=== PATIENT | female | born 2000 | race Caucasian/White ===

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

== ENCOUNTER 2020-02-09 22:35 | Emergency (ER) | payer OTHER ==
[2020-02-09 22:55] VITALS: BP 115/69
--- NOTE | 2020-02-09 23:16 | ER Document Report ---
HPI - HPI Patient complains to provider of: left knee pain Time Seen by Provider: 02/09/20 23:04 Pain Level: 3 Context: 19-year-old female past medical history significant for anxiety and asthma presents the emergency room with left knee pain. Patient states she fell on her porch got her leg caught between the stairs twisting her left knee. States is able to walk but is painful. History of previous meniscal tears. States she did take 1200 mg of ibuprofen just prior to arrival which is helping with the pain. No other trauma or injury. Denies . Exacerbated by: Walking Relieved by: Remaining still Similar symptoms previously: Yes - History of previous meniscal tears Recently seen / treated by doctor: No - ROS Systems Reviewed and Negative: Yes All other systems reviewed and negative - EENT EENT: DENIES: Sore Throat - NEURO Neurology: DENIES: Weakness - RESPIRATORY Respiratory: DENIES: Trouble Breathing - MUSCULOSKELETAL Musculoskeletal: REPORTS: Extremity pain. DENIES: Back Pain - DERM Skin Color: Normal, [place] Skin Problems: None Past Medical History - General Information source: Patient - Social History Smoking Status: Current Every Day Smoker Frequency of alcohol use: None Drug Abuse: None Family History: Reviewed & Not Pertinent Patient has homicidal ideation: No Renal/ Medical History: Denies: Hx Peritoneal Dialysis Vertical Provider Document - CONSTITUTIONAL Agree With Documented VS: Yes Exam Limitations: No Limitations General Appearance: Mild Distress - INFECTION CONTROL TRAVEL OUTSIDE OF THE [place] IN LAST 30 DAYS: No - HEENT HEENT: Atraumatic, Normocephalic - NECK Neck: Normal Inspection, Supple - RESPIRATORY Respiratory: Breath Sounds Normal, No Respiratory Distress, Chest Non-Tender. negative: Rales, Rhonchi, Wheezing - CARDIOVASCULAR Cardiovascular: Regular Rate, Regular Rhythm, No Murmur - MUSCULOSKELETAL/EXTREMETIES Musculoskeletal/Extremeties: FROM, Tender - Palpation to the left medial patella. Full range of motion with flexion, extension, internal and external rotation of the knee. Negative anterior posterior drawer, negative Cj's, negative Manuela's. No obvious deformity noted. No swelling. - NEURO Level of Consciousness: Awake, Alert Motor/Sensory: No Motor Deficit, No Sensory Deficit Notes: Positive left pedal pulse. Capillary refill less than 3 seconds. - DERM Integumentary: Warm, Dry Course - Re-evaluation Re-evalutation: 02/09/20 23:18 Patient was offered x-rays of the left knee. Patient refused patient is concerned about a meniscal tear. Requesting MRI. Counseled patient that we do not do MRIs in the emergency room unless there is a emergent need, which would be the diagnostic study of choice to rule out a meniscal tear. Counseled patient that she can rest, ice, elevate her knee has a brace at home she can wear for comfort. Crutches with crutch training provided by nursing staff as documented. Will refer to outpatient orthopedics if not improving in 2 to 3 days. On-call physician was provided. Continue with ibuprofen but do not exceed more than 800 mg every 6 hours. Can take Tylenol in between the Motrin. Patient was given strict return to the emergency room guidelines. Return for any new or worsening symptoms. All questions were answered. Patient verbalized understanding and agrees with plan of care. 02/09/20 23:49 - Vital Signs Vital signs: Temp Pulse Resp BP Pulse Ox 97.8 F 90 16 115/69 97 02/09/20 23:02 02/09/20 22:52 02/09/20 22:52 02/09/20 22:52 02/09/20 22:52 - Diagnostic Test Radiology reviewed: Reports reviewed Procedures - Immobilization Left Knee Time completed: 23:50 Pre-Proc Neuro Vasc Exam: Normal Immobilizer type: Crutches Performed by: PCT Post-Proc Neuro Vasc Exam: Normal Alignment checked and good: Yes Discharge - Discharge Clinical Impression: Left knee injury Qualifiers: Encounter type: initial encounter Qualified Code(s): S89.92XA - Unspecified injury of left lower leg, initial encounter Condition: Stable Disposition: HOME, SELF-CARE Instructions: Use of Crutches ([facility]), Ice & Elevation ([facility]), Sprained Knee ([facility]) Additional Instructions: Rest, ice, elevate left knee. Continue with Motrin not to exceed 800 mg every 6 hours. Can take Tylenol in between. Outpatient follow-up with orthopedics as discussed. Return for any new or worsening symptoms. Referrals: RIA WELSH JR, DO [ACTIVE PROVISIONAL STAFF] - Follow up as needed
== END 2020-02-09 23:50 | disposition home or self-care (01) ==
LOC: ER 22:35
DX: S89.92XA Unspecified injury of left lower leg, initial encounter (principal); M25.562 Pain in left knee; M79.605 Pain in left leg; W19.XXXA Unspecified fall, initial encounter; Y92.008 Other place in unspecified non-institutional (private) residence as the place of occurrence of the external cause; F41.9 Anxiety disorder, unspecified; J45.909 Unspecified asthma, uncomplicated; F17.200 Nicotine dependence, unspecified, uncomplicated
CPT/HCPCS: 99283

== ENCOUNTER 2020-04-28 22:26 | Emergency (ER) | payer MEDICAID ==
[2020-04-28 22:41] VITALS: BP 147/80
== END 2020-04-29 00:18 | disposition left against medical advice (07) ==
LOC: ER 22:26
DX: Z53.21 Procedure and treatment not carried out due to patient leaving prior to being seen by health care provider (principal); R68.84 Jaw pain

== ENCOUNTER 2020-05-02 15:02 | Emergency (ER) | payer SELFPAY ==
[2020-05-02 15:17] VITALS: BP 130/67
--- NOTE | 2020-05-02 15:52 | ER Document Report ---
ED General - General Chief Complaint: Nausea/Vomiting Stated Complaint: NAUSEA,VOMITING,RIGHT EAR PAIN Notes: 19-year-old female with past medical history of hiatal hernia, anxiety presenting today with nausea and vomiting and diarrhea since yesterday. She states that yesterday she ate a sandwich that had mold on the bread. She denies any fevers, chills, shortness of breath, chest pain or abdominal pain. She has had 7 episodes of vomiting yesterday and approximately 6 today. Her last episode of vomiting was 1 hour ago. She took Zofran approximately 1 hour ago. Continues to state that she is nauseated. Works at a [employer]. Is able to keep fluids down. Is unable to keep solids down at this time. She tried to eat [employer] yesterday while at work but she was unable to keep it down. Also has had right ear pain starting this am after cleaning her ear. She also noted that she had some blood from her ear. No additional symptoms reported. TRAVEL OUTSIDE OF THE [place] IN LAST 30 DAYS: No - Related Data Allergies/Adverse Reactions: amoxicillin Allergy (Verified 05/02/20 15:38) Penicillins Allergy (Verified 05/02/20 15:38) prednisone Allergy (Verified 05/02/20 15:38) Past Medical History - Social History Smoking Status: Never Smoker Family History: Reviewed & Not Pertinent Renal/ Medical History: Denies: Hx Peritoneal Dialysis Review of Systems - Review of Systems Constitutional: See HPI EENT: See HPI Cardiovascular: No symptoms reported Respiratory: No symptoms reported Gastrointestinal: See HPI Genitourinary: No symptoms reported Female Genitourinary: No symptoms reported Musculoskeletal: No symptoms reported Skin: No symptoms reported Hematologic/Lymphatic: No symptoms reported Neurological/Psychological: No symptoms reported Physical Exam - Vital signs Vitals: Temp Pulse Resp BP Pulse Ox 99.2 F 100 16 130/67 H 97 05/02/20 15:14 05/02/20 15:14 05/02/20 15:14 05/02/20 15:14 05/02/20 15:14 Interpretation: Normal - Notes Notes: Adult General: GENERAL: Alert, interacts well. No acute distress HEAD: Normocephalic, atraumatic EYES: Pupils equal, round and reactive to light. Extraocular movements intact. ENT: Oral mucosa moist, tongue midline. Oropharynx unremarkable. Airway patent. Nares patent, sinuses nontender, right ear canal has cerum with small dried blood in ear canal. TMs intact. No Trismus. NECK: Full range of motion. Supple. Trachea midline. No lymphadenopathy. LUNGS: Clear to auscultation bilaterally, no wheezes, rales, or rhonchi. No re spiratory distress. Nontender chest wall. HEART: Regular rate and rhythm. No murmurs, rubs or gallops. ABDOMEN: Soft, nontender. Nondistended. (-) [place] sign. Bowel sounds present in all 4 quadrants. No rebound, guarding or masses. GENITOURINARY: Deferred EXTREMITIES: Moves all 4 extremities spontaneously. No edema, normal radial and dorsal pedis pulses bilaterally. No cyanosis. BACK: No saddle anesthesia, normal distal neurovascular exam. Moves all extremities with full range of motion. NEUROLOGICAL: Alert and oriented x3. Normal speech. Cranial nerves II through XII grossly intact. Strength 5/ 5 in all extremities. PSYCH: Normal affect, normal mood. SKIN: Warm, dry, normal turgor. No rashes or lesions noted. Course - Re-evaluation Re-evalutation: 05/02/20 16:59 I was notified by the nurse that the patient refuses any IM medication and does not desire any antinausea medication as the nausea is intermittent 05/02/20 17:34 Her TM is intact and a small amount of dried blood noted in ear canal as well as cerum. Patient bleeding likely due to disrupting the canal while using a q tip to clean her ears. Patient advised to not use q tips to clean her ears as this can cause trauma to the ears. States that she is occasionally nauseated but she is currently not nauseated. Her CBC and CMP have come back unremarkable. I am still pending a urinalysis at this time. She is still able to drink fluids. She continues to ask when she can leave. Continues to deny wanting any antinausea medication and she can continue to take her zofran at home. Her urinalysis did come back with trace leukocyte esterase , but she denies any urinary symptoms. As patients labs are unremarkable and patient denies wanting additional medication to treat her symptoms, I will discharge the patient. I discussed with her that she should establish care with a primary care provider as soon as possible. I also discussed with her that she can return to the emergency department if she has worsening symptoms or the development of new symptoms. Patient acknowledges and verbalizes understanding of instruction and plan. All questions answered. - Vital Signs Vital signs: Temp Pulse Resp BP Pulse Ox 99.2 F 100 16 130/67 H 97 05/02/20 15:14 05/02/20 15:14 05/02/20 15:14 05/02/20 15:14 05/02/20 15:14 - Laboratory Result Diagrams: 05/02/20 15:50 05/02/20 15:50 Laboratory results interpreted by me: 05/02/20 16:48 Ur Leukocyte Esterase TRACE H Discharge - Discharge Clinical Impression: Gastroenteritis Condition: Stable Disposition: HOME, SELF-CARE Instructions: Antinausea Medication ([facility]), Gastroenteritis (adult) ([facility]) Additional Instructions: You can continue to take Zofran for your nausea. Please establish care with a primary care provider. You may return to the emergency department for worsening symptoms or development of new symptoms. Forms: Return to Work
[2020-05-02] MEDS ORDERED: PROMETHAZINE HCL INJ 25 MG/1 ML VIAL IM ONE (16:30)
[2020-05-02] MEDS ORDERED: DIPHENHYDRAMINE HCL 25 MG CAPSULE PO ONE (16:31)
[2020-05-02 16:44] LABS: ABSOLUTE EOSINOPHILS # (AUTO) 0.1 10^3/uL (0.0-0.6); ABSOLUTE LYMPHOCYTES (AUTO) 1.8 10^3/uL (0.5-4.7); ABSOLUTE MONOCYTES (AUTO) 0.6 10^3/uL (0.1-1.4); ABSOLUTE NEUT (AUTO) 3.6 10^3/uL (1.7-8.2); BASOPHILS % (AUTO) 0.2 % (0-2); EOSINOPHILS % (AUTO) 0.9 % (0-6); HEMATOCRIT 39.4 % (36.0-47.0); HEMOGLOBIN 13.8 g/dL (12.0-15.5); LYMPHOCYTES % (AUTO) 29.4 % (13-45); MEAN CORPUSCULAR HEMOGLOBIN 32.9 pg (27.0-33.4); MEAN CORPUSCULAR HGB CONC 35.1 g/dL (32.0-36.0); MEAN CORPUSCULAR VOLUME 94 fl (80-97); MONOCYTES % (AUTO) 9.9 % (3-13); PLATELET COUNT 246 10^3/uL (150-450); RED CELL DISTRIBUTION WIDTH 12.5 % (11.5-14.0); SEGMENTED NEUTROPHILS % (AUTO) 59.6 % (42-78); TOTAL CELLS COUNTED % (AUTO) 100 %; WHITE BLOOD COUNT 6.1 10^3/uL (4.0-10.5)
[2020-05-02 17:10] LABS: ALKALINE PHOSPHATASE 47 U/L (38-126); ANION GAP 7 (5-19); ASPARTATE AMINO TRANSFERASE 22 U/L (14-36); BILIRUBIN,DIRECT 0.2 mg/dL (0.0-0.4); BILIRUBIN,TOTAL 0.2 mg/dL (0.2-1.3); BLOOD UREA NITROGEN 13 mg/dL (7-20); CALCIUM 9.2 mg/dL (8.4-10.2); CARBON DIOXIDE 29 mmol/L (22-30); CHLORIDE 105 mmol/L (98-107); GLUCOSE 89 mg/dL (75-110); POTASSIUM 4.1 mmol/L (3.6-5.0); TOTAL PROTEIN 6.9 g/dL (6.3-8.2)
[2020-05-02 17:36] LABS: AMORPHOUS SEDIMENT,URINE TRACE /HPF; APPEARANCE,URINE SLIGHTLY-CLOUDY; BILIRUBIN,URINE NEGATIVE (NEGATIVE); COLOR,URINE YELLOW; GLUCOSE, URINE NEGATIVE (NEGATIVE); KETONES,URINE NEGATIVE (NEGATIVE); LEUKOCYTE ESTERASE,URINE TRACE (NEGATIVE); NITRITE,URINE NEGATIVE (NEGATIVE); PROTEIN,URINE NEGATIVE (NEGATIVE); URINE SPECIFIC GRAVITY 1.017; UROBILINOGEN,URINE NEGATIVE mg/dL (<2.0)
== END 2020-05-02 17:53 | disposition home or self-care (01) ==
LOC: ER 15:02
DX: K52.9 Noninfective gastroenteritis and colitis, unspecified (principal); R11.2 Nausea with vomiting, unspecified; H61.21 Impacted cerumen, right ear; H92.21 Otorrhagia, right ear; Z88.0 Allergy status to penicillin; Z88.8 Allergy status to other drugs, medicaments and biological substances
CPT/HCPCS: 36415; 80053; 81001; 81025; 85025; 99283

== ENCOUNTER 2020-05-09 17:16 | Emergency (ER) | payer SELFPAY ==
[2020-05-09 17:50] LABS: ABSOLUTE EOSINOPHILS # (AUTO) 0.1 10^3/uL (0.0-0.6); ABSOLUTE LYMPHOCYTES (AUTO) 1.7 10^3/uL (0.5-4.7); ABSOLUTE MONOCYTES (AUTO) 0.6 10^3/uL (0.1-1.4); ABSOLUTE NEUT (AUTO) 4.7 10^3/uL (1.7-8.2); BASOPHILS % (AUTO) 0.2 % (0-2); EOSINOPHILS % (AUTO) 0.9 % (0-6); HEMATOCRIT 41.4 % (36.0-47.0); HEMOGLOBIN 14.4 g/dL (12.0-15.5); LYMPHOCYTES % (AUTO) 23.7 % (13-45); MEAN CORPUSCULAR HEMOGLOBIN 32.8 pg (27.0-33.4); MEAN CORPUSCULAR HGB CONC 34.9 g/dL (32.0-36.0); MEAN CORPUSCULAR VOLUME 94 fl (80-97); MONOCYTES % (AUTO) 8.9 % (3-13); PLATELET COUNT 264 10^3/uL (150-450); RED CELL DISTRIBUTION WIDTH 12.2 % (11.5-14.0); SEGMENTED NEUTROPHILS % (AUTO) 66.3 % (42-78); TOTAL CELLS COUNTED % (AUTO) 100 %; WHITE BLOOD COUNT 7.1 10^3/uL (4.0-10.5)
[2020-05-09 18:11] LABS: ALBUMIN 4.1 g/dL (3.5-5.0); ALKALINE PHOSPHATASE 52 U/L (38-126); ANION GAP 5 (5-19); ASPARTATE AMINO TRANSFERASE 20 U/L (14-36); BILIRUBIN,DIRECT 0.3 mg/dL (0.0-0.4); BILIRUBIN,TOTAL 0.3 mg/dL (0.2-1.3); BLOOD UREA NITROGEN 12 mg/dL (7-20); CALCIUM 9.6 mg/dL (8.4-10.2); CARBON DIOXIDE 28 mmol/L (22-30); CHLORIDE 109 mmol/L (98-107); GLUCOSE 84 mg/dL (75-110); POTASSIUM 4.1 mmol/L (3.6-5.0)
[2020-05-09 18:12] LABS: ALCOHOL < 10 mg/dL (NONE DETECTED)
--- NOTE | 2020-05-09 18:20 | ER Document Report ---
ED General - General Chief Complaint: Seizure Stated Complaint: POSSIBLE SEIZURE Time Seen by Provider: 05/09/20 18:19 TRAVEL OUTSIDE OF THE [place] IN LAST 30 DAYS: No - HPI Notes: 19-year-old female presents with chief complaint of pseudoseizure. Patient states that she has been diagnosed with pseudoseizures in the past. She had a work-up done in [place] for possible seizures, was initially started on Keppra, states that she had a prolonged EEG which was negative for seizure, ultimately diagnosed with pseudoseizure, Keppra discontinued and Ativan ordered. She states that she knows that these are related to anxiety. She states that she was at work and felt her anxiety increasing, she states that her palms began to sweat and then her body began to shake. They were about 30 seconds each. She states that she knew what was happening the entire time. Events were witnessed by a coworker. Patient currently denies complaints. She does not really take Ativan anymore and she is concerned it could be addictive medication. Requesting to go home at this time. - Related Data Allergies/Adverse Reactions: amoxicillin Allergy (Verified 05/02/20 15:38) Penicillins Allergy (Verified 05/02/20 15:38) prednisone Allergy (Verified 05/02/20 15:38) Past Medical History - General Information source: Patient - Social History Smoking Status: Unknown if Ever Smoked Family History: Reviewed & Not Pertinent Patient has homicidal ideation: No Pulmonary Medical History: Reports: Hx Asthma Renal/ Medical History: Denies: Hx Peritoneal Dialysis Psychiatric Medical History: Reports: Hx Depression Past Surgical History: Reports: Hx Oral Surgery - [place] teeth Review of Systems - Review of Systems Constitutional: No symptoms reported EENT: No symptoms reported Cardiovascular: No symptoms reported Respiratory: No symptoms reported Gastrointestinal: No symptoms reported Genitourinary: No symptoms reported Female Genitourinary: No symptoms reported Musculoskeletal: No symptoms reported Skin: No symptoms reported Neurological/Psychological: Anxiety Physical Exam - Vital signs Vitals: Temp 98.1 F 05/09/20 17:35 - General General appearance: Appears well, Alert In distress: None - HEENT Head: Normocephalic, Atraumatic Extraocular movements intact: Yes Pupils: PERRL - Respiratory Breath sounds: Normal - Cardiovascular Rhythm: Regular - Abdominal Tenderness: Nontender - Extremities General upper extremity: Normal inspection, Normal ROM General lower extremity: Normal inspection, Normal ROM - Neurological Neuro grossly intact: Yes Cognition: Normal Orientation: AAOx4 Motor strength normal: LUE, RUE, LLE, RLE Sensory: Normal - Psychological Associated symptoms: Normal affect - Skin Skin Temperature: Warm Course - Re-evaluation Re-evalutation: 19-year-old female here for pseudoseizures, she carries a diagnosis, seems to be aware understanding of the diagnosis. No complaints currently. Based on her description of events, the fact that she maintained consciousness the entire time, would have a low suspicion that a true seizure occurred. She is well- appearing on exam, vitals are stable, neurologically intact. She is requesting to go home at this time. She had labs done as part of the triage process, CBC has resulted which has no leukocytosis or anemia, patient was updated on this. Electrolytes are still pending. Patient encouraged to follow-up with her PCP peer return precautions given, stable at time of discharge. - Vital Signs Vital signs: Temp Pulse Resp BP Pulse Ox 98.1 F 05/09/20 17:35 - Laboratory Result Diagrams: 05/09/20 17:29 05/09/20 17:29 - EKG Interpretation by Me Additional EKG results interpreted by me: EKG is interpreted by me. Normal sinus rhythm, rate 99. Narrow QRS, QTC within normal limits. No ST elevation. Discharge - Discharge Clinical Impression: Pseudoseizures Condition: Stable Disposition: HOME, SELF-CARE Additional Instructions: Please touch base with your PCP/prescribing doctor to discuss your medications. Return to the emergency department for any concerning worsening symptoms.
--- NOTE | 2020-05-09 19:14 | EKG REPORT ---
SEVERITY:- NORMAL ECG - SINUS RHYTHM : Confirmed by: Evin Valladares 09-May-2020 19:13:29
== END 2020-05-09 18:33 | disposition home or self-care (01) ==
LOC: ER 17:16
DX: F44.5 Conversion disorder with seizures or convulsions (principal); F41.9 Anxiety disorder, unspecified; J45.909 Unspecified asthma, uncomplicated; Z88.0 Allergy status to penicillin; Z88.8 Allergy status to other drugs, medicaments and biological substances
CPT/HCPCS: 36415; 80053; 80307; 83735; 85025; 93005; 93010; 99284